=== PATIENT | female | born 1955 | race Caucasian/White ===

== ENCOUNTER 2016-12-30 08:27 | Emergency (ER) | payer BC ==
--- NOTE | 2016-12-30 10:03 | ED ---
Lower Extremity - HPI Summary HPI Summary: Pain along Rt inner thigh - no redness, heat or streaks but concerned about clot as hse had one 2 years ago. Took ibuprofen this morning which alleviated persistent pain. She is pain free at this time but wants to get checked for DVT. Has lupus - takes ASAa to prevent clots. Wwas cleaning bathtub yesterday - could have strained a muscle too. - History of Current Complaint Chief Complaint: EDExtremityLower Stated Complaint: RIGHT LEG INJURY Time Seen by Provider: 12/30/16 09:36 Hx Obtained From: Patient Pain Intensity: 0 - Allergies/Home Medications Allergies/Adverse Reactions: Allergies Allergy/AdvReac Type Severity Reaction Status Date / Time Bee Venom Allergy Intermediate Swelling Verified 10/02/15 17:39 Of Face,Lips,& Throat Sulfa Antibiotics Allergy Intermediate Rash And Verified 10/02/15 17:39 Itching Lamotrigine [From Lamictal] Allergy Swelling Verified 10/02/15 17:39 PMH/Surg Hx/FS Hx/Imm Hx Previously Healthy: Yes Endocrine/Hematology History: Reports: Hx Systemic Lupus Erythematosus, Hx Anemia, Other Endocrine/Hematological Disorders - Lupus Denies: Hx Anticoagulant Therapy, Hx Blood Disorders Cardiovascular History: Reports: Hx Hypertension - on lisinopril, amlodipine Denies: Hx Coronary Artery Disease, Hx Pacemaker/ICD, Hx Peripheral Vascular Disease Respiratory History: Denies: Hx Pulmonary Embolism Musculoskeletal History: Reports: Hx Arthritis, Hx Osteoporosis - OSTEOPENIA Denies: Hx Rheumatoid Arthritis - LUPUS Sensory History: Reports: Hx Contacts or Glasses Denies: Hx Hearing Aid Opthamlomology History: Reports: Hx Contacts or Glasses Neurological History: Reports: Hx Seizures Psychiatric History: Denies: Hx Panic Disorder - Cancer History Cancer Type, Location and Year: Lupus Hx Chemotherapy: No Hx Radiation Therapy: No - Surgical History Surgery Procedure, Year, and Place: OVARY REMOVED, C-SECT,TONSILS, Infectious Disease History: No Infectious Disease History: Reports: Hx Shingles Denies: Traveled Outside the [place] in Last 30 Days - Family History Known Family History: Positive: Cardiac Disease - father, Hypertension Negative: Diabetes - Social History Occupation: Employed Full-time - psychologist Lives: With Family Alcohol Use: Occasionally Hx Substance Use: No Substance Use Type: Reports: None Hx Tobacco Use: No Smoking Status (MU): Never Smoked Tobacco Review of Systems Constitutional: Negative Negative: Chest Pain Negative: Shortness Of Breath Musculoskeletal: Other - see HPI Skin: Other - mild skin irrtitatoin in area - suspectable to staph infections - doesn't feel she has one now Neurological: Negative Negative: Weakness, Paresthesia, Numbness Psychological: Normal All Other Systems Reviewed And Are Negative: Yes Physical Exam Vital Signs On Initial Exam: Initial Vitals Temp Pulse Resp BP Pulse Ox 98.0 F 75 20 142/72 100 12/30/16 08:35 12/30/16 08:35 12/30/16 08:35 12/30/16 08:35 12/30/16 08:35 - [place]kinson Coma Scale Coma Scale Total: 15 Diagnostics - Vital Signs Vital Signs Temp Pulse Resp BP Pulse Ox 12/30/16 08:35 98.0 F 75 20 142/72 100 - Laboratory Lab Statement: Any lab studies that have been ordered have been reviewed, and results considered in the medical decision making process. Lower Extremity Course/Dx - Diagnoses Provider Diagnoses: Groin strain Discharge - Discharge Plan Condition: Stable Disposition: HOME Patient Education Materials: Muscle Strain (ED) Referrals: Gay Saravia MD [Primary Care Provider] - Additional Instructions: Rest, ice, gentle stretches Apply topical analgesics as needed for pain Follow-up with PCP *If worse pain or you develop redness, swelling, streaking, fever, chills, chest pain or shortness of breath, return to ED
--- NOTE | 2016-12-30 11:32 | RAD ---
HISTORY: Right groin tenderness to palpation, history of superficial venous thrombosis COMPARISONS: October 09, 2015 TECHNIQUE: Multiple transverse and longitudinal ultrasound images were obtained of the right lower extremity from the level of the common femoral vein inferiorly through to the infrapopliteal veins using grayscale, color Doppler, and spectral Doppler imaging with and without compression and with augmentation. Comparison images were obtained of the contralateral common femoral vein. FINDINGS: VEINS: The venous system of the right lower extremity is compressible throughout its course, with normal flow on color Doppler imaging and normal response to augmentation on spectral Doppler imaging. The right saphenous vein thrombosis noted on the previous examination is no longer evident. SOFT TISSUES: Unremarkable. OTHER FINDINGS: None. IMPRESSION: NO RIGHT LOWER EXTREMITY DEEP VEIN THROMBOSIS
[2016-12-30 12:59] VITALS: BP 136/72
== END 2016-12-30 12:58 | disposition home or self-care (01) ==
LOC: ED 08:27
DX: S39.011A Strain of muscle, fascia and tendon of abdomen, initial encounter (principal); X50.9XXA Other and unspecified overexertion or strenuous movements or postures, initial encounter; Y93.9 Activity, unspecified; Y92.9 Unspecified place or not applicable
CPT/HCPCS: 99282

== ENCOUNTER 2017-02-05 08:16 | Emergency (ER) | payer BC ==
[2017-02-05 08:26] VITALS: BP 143/76
--- NOTE | 2017-02-05 09:17 | UC ---
Abdominal Pain Female HPI - HPI Summary HPI Summary: 62 yo female presents with mild left sided abd discomfort and no BMs x 4-5 days mild AM nausea normal colonoscopy 2-3 yrs ago oopherectomy no f/c 0n chronic steroids (Pred 5 mg /day) recently found to be anemic/had EGD which was normal/started on Fe/last CBC was normal - History of Current Complaint Chief Complaint: UCGI Stated Complaint: CONSTIPATION Time Seen by Provider: 02/05/17 09:12 Hx Obtained From: Patient Onset/Duration: Sudden Onset, Lasting Days Timing: Constant Severity Initially: Mild Severity Currently: Mild Pain Intensity: 2 Pain Scale Used: 0-10 Numeric Location: Other - left UQ Radiates: No Character: Aching Aggravating Factor(s): Nothing Alleviating Factor(s): Nothing Associated Signs and Symptoms: Positive: Constipation, Nausea - chronic AM nausea Allergies/Adverse Reactions: Allergies Allergy/AdvReac Type Severity Reaction Status Date / Time Bee Venom Allergy Intermediate Swelling Verified 02/05/17 08:27 Of Face,Lips,& Throat Sulfa Antibiotics Allergy Intermediate Rash And Verified 02/05/17 08:27 Itching Lamotrigine [From Lamictal] Allergy Swelling Verified 02/05/17 08:27 PMH/Surg Hx/FS Hx/Imm Hx Previously Healthy: No - LUPUS Cardiovascular History: Hypertension Other History Of: Negative For: Anticoagulant Therapy - Surgical History Surgical History: Yes Surgery Procedure, Year, and Place: OVARY REMOVED, C-SECT,TONSILS, - Family History Known Family History: Positive: Cardiac Disease - father, Hypertension Negative: Diabetes - Social History Alcohol Use: Occasionally Substance Use Type: None Smoking Status (MU): Never Smoked Tobacco Review of Systems Constitutional: Negative Skin: Negative Eyes: Negative ENT: Negative Respiratory: Negative Cardiovascular: Negative Gastrointestinal: Other - constipation Genitourinary: Negative Motor: Negative Neurovascular: Negative Musculoskeletal: Negative Neurological: Negative Psychological: Negative All Other Systems Reviewed And Are Negative: Yes Physical Exam Triage Information Reviewed: Yes Appearance: Well-Appearing, No Pain Distress, Well-Nourished Vital Signs: Initial Vital Signs Temp 97.4 F 02/05/17 08:21 Pulse 74 02/05/17 08:21 Resp 18 02/05/17 08:21 BP 143/76 02/05/17 08:21 Pulse Ox 100 11/16/17 08:21 Vital Signs Reviewed: Yes Eyes: Positive: Conjunctiva Clear ENT: Positive: Hearing grossly normal. Negative: Nasal congestion, Nasal drainage, Dental tenderness, Sinus tenderness Neck: Positive: Supple, Nontender, No Lymphadenopathy Respiratory: Positive: Lungs clear, Normal breath sounds, No respiratory distress, No accessory muscle use Cardiovascular: Positive: RRR, No Murmur Abdomen Description: Positive: Soft, Other: - stool guaiac (+), no fland blood, soft stool in vault. Negative: Nontender - minimal LLQ tenderness to deep palpation, Distended, Guarding, Hepatomegaly, McBurney's Point Tenderness, Peritoneal Signs, Pulsatile Mass, Splenomegaly Musculoskeletal: Positive: ROM Intact, No Edema Neurological: Positive: Alert Psychological Exam: Normal Skin Exam: Normal Diagnostics - Laboratory Diagnostic Studies Completed/Ordered: stool guaiac (+) Abd Pain Female Course/Dx - Differential Dx/Diagnosis Provider Diagnoses: constipation. stool guaiac (+) Discharge - Discharge Plan Condition: Stable Disposition: HOME Patient Education Materials: Constipation (ED), Gastrointestinal Bleeding (ED) Referrals: Gay Saravia MD [Primary Care Provider] - 2 Weeks Additional Instructions: you are planning on having out blood work done today If there is not a CBC ordered have the lab call Call Dr. Saravia in AM to check CBC results If it has dropped significantly since your last one I suggest you don't travel Recheck BIGG for abd pain/ leslee blood seen in stools/lightheadedness For constipation Milk of Mag 30cc (2 tablespoons) every 6 hours for three doses Fleets enema if this is not successful
== END 2017-02-05 09:50 | disposition home or self-care (01) ==
LOC: UCEAST 08:16
DX: K59.00 Constipation, unspecified (principal); R19.5 Other fecal abnormalities
CPT/HCPCS: 82272; 99212; G0463

== ENCOUNTER 2021-05-04 00:36 | Inpatient (IN) ==
[2021-05-04 02:26] LABS: ABS Basophils 0.1 10^3/ul (0-0.2); ABS Eosinophils 0.1 10^3/ul (0-0.6); ABS Lymphocytes 2.5 10^3/ul (1.0-4.8); ABS Monocytes 0.8 10^3/ul (0-0.8); ABS Neutrophils 4.6 10^3/ul (1.5-7.7); Eosinophil % 1.4 %; Hematocrit 36 % (35-47); Hemoglobin 11.7 g/dL (12.0-16.0); Lymphocyte % 30.9 %; Mean Corpuscular HGB Conc 33 g/dL (31-36); Mean Corpuscular Hemoglobin 29 pg (27-31); Mean Corpuscular Volume 87 fL (80-97); Mean Platelet Volume 7.1 fL (7.4-10.4); Platelet Count 296 10^3/uL (150-450); Red Blood Count 4.09 10^6 /uL (3.70-4.87); Red Cell Distribution Width 15 % (10-15); Urine Appearance Clear; Urine Bilirubin Negative (Negative); Urine Blood 2+ (Negative); Urine Color Colorless; Urine Glucose Negative (Negative); Urine Ketones Negative (Negative); Urine Nitrite Negative (Negative); Urine Protein Negative (Negative); Urine Specific Gravity 1.004 (1.002-1.030); Urine Urobilinogen Negative (Negative); White Blood Count 8.1 10^3/uL (3.5-10.8)
[2021-05-04 02:39] LABS: Urine Bacteria Absent (Absent); Urine Red Blood Cell 1+(3-5/hpf) (Absent); Urine White Blood Cell Absent (Absent)
[2021-05-04 02:41] LABS: ALT 26 U/L (7-52); AST 25 U/L (13-39); Albumin 3.9 g/dL (3.2-5.2); Albumin/Globulin Ratio 1.3 (1-3); Alkaline Phosphatase 103 U/L (35-149); Anion Gap 4 mmol/L (2-11); Blood Urea Nitrogen 19 mg/dL (6-24); CO2 Carbon Dioxide 30 mmol/L (22-32); Calcium 9.5 mg/dL (8.6-10.3); Chloride 105 mmol/L (101-111); Glucose 92 mg/dL (70-100); Potassium 3.7 mmol/L (3.5-5.0); Sodium 139 mmol/L (135-145); Total Protein 6.9 g/dL (6.4-8.9); eGFR CKD-EPI 55.8 (>60)
[2021-05-04 02:46] LABS: Troponin I 0.05 ng/mL (<0.03)
[2021-05-04] MEDS ORDERED: Calcium Gluconate 2 GM in NS 0.9% 100 ml BAG 100 ML IV ONE (03:00)
[2021-05-04] MEDS ORDERED: NS 0.9% 100 ml BAG 100 ML ONE (03:09)
[2021-05-04 03:12] LABS: Alcohol, S < 13 mg/dL (<13)
[2021-05-04 03:13] LABS: INR 2.81 (0.86-1.15)
[2021-05-04 03:27] LABS: TSH Ultra Thyroid Stim Horm 8.59 mcIU/mL (0.34-5.60)
[2021-05-04 04:32] LABS: Magnesium 1.8 mg/dL (1.9-2.7)
[2021-05-04 04:51] LABS: Free T4 0.99 ng/dL (0.61-1.12)
[2021-05-04] MEDS ORDERED: Warfarin per PHARMACY **NOTE FOLLOW UP SCH (05:00)
[2021-05-04 05:32] LABS: Troponin I 0.08 ng/mL (<0.03)
[2021-05-04 05:40] LABS: Urine Creatinine Concentration 20.25 mg/dL
[2021-05-04] MEDS ORDERED: Potassium Chlor 20 meq TAB.ER PO ONE (06:19)
[2021-05-04] MEDS ORDERED: Magnesium Sulfate 2 gm BAG 2 GM/50 ML BAG IVPB ONE (06:19)
[2021-05-04] MEDS: Calcium/Vitamin D TAB 250/125 TAB PO SCH (07:40)
[2021-05-04 09:01] LABS: Phosphorus 2.7 mg/dL (2.5-5.0)
[2021-05-04 09:47] LABS: Troponin I 0.08 ng/mL (<0.03)
[2021-05-04] MEDS ORDERED: Phytonadione IV (Adult) 5 MG in NS 0.9% 50 ML 50 ML IV ONE (10:00)
[2021-05-05 05:31] LABS: ABS Eosinophils 0.1 10^3/ul (0-0.6); ABS Monocytes 0.5 10^3/ul (0-0.8); ABS Neutrophils 2.7 10^3/ul (1.5-7.7); Eosinophil % 2.4 %; Hematocrit 36 % (35-47); Hemoglobin 11.9 g/dL (12.0-16.0); Lymphocyte % 37.6 %; Mean Corpuscular HGB Conc 33 g/dL (31-36); Mean Corpuscular Hemoglobin 29 pg (27-31); Mean Corpuscular Volume 87 fL (80-97); Mean Platelet Volume 6.7 fL (7.4-10.4); Platelet Count 254 10^3/uL (150-450); Red Blood Count 4.12 10^6 /uL (3.70-4.87); Red Cell Distribution Width 15 % (10-15); White Blood Count 5.4 10^3/uL (3.5-10.8)
[2021-05-05 05:38] LABS: INR 1.29 (0.86-1.15)
[2021-05-05 05:45] LABS: Potassium 4.1 mmol/L (3.5-5.0); eGFR CKD-EPI 66.5 (>60)
[2021-05-05] MEDS ORDERED: Enoxaparin 60 MG/0.6 ML SYR SUBCUT SCH (07:00)
[2021-05-05] MEDS ORDERED: Enoxaparin 40 MG/0.4 ML SYR SUBCUT ONE (09:00)
[2021-05-05] MEDS: Calcium/Vitamin D TAB 250/125 TAB PO SCH (09:33)
[2021-05-05] MEDS ORDERED: Calcium Carb (TUMS) 500 mg CHEW TAB PO ONE (23:06)
[2021-05-06 03:12] LABS: Troponin I 0.03 ng/mL (<0.03)
[2021-05-06] MEDS: NS 0.9% 1000 ml BAG 1,000 ML IV SCH ×2 (05:07→12:13)
[2021-05-06 05:13] LABS: ABS Basophils 0.1 10^3/ul (0-0.2); ABS Eosinophils 0.1 10^3/ul (0-0.6); ABS Lymphocytes 2.1 10^3/ul (1.0-4.8); ABS Monocytes 0.6 10^3/ul (0-0.8); ABS Neutrophils 3.1 10^3/ul (1.5-7.7); Eosinophil % 2.2 %; Hematocrit 33 % (35-47); Hemoglobin 11.1 g/dL (12.0-16.0); Lymphocyte % 35.6 %; Mean Corpuscular HGB Conc 33 g/dL (31-36); Mean Corpuscular Hemoglobin 29 pg (27-31); Mean Corpuscular Volume 88 fL (80-97); Mean Platelet Volume 7.1 fL (7.4-10.4); Platelet Count 238 10^3/uL (150-450); Red Blood Count 3.81 10^6 /uL (3.70-4.87); Red Cell Distribution Width 15 % (10-15)
[2021-05-06 05:20] LABS: INR 1.2 (0.86-1.15)
[2021-05-06 05:30] LABS: Anion Gap 5 mmol/L (2-11); Blood Urea Nitrogen 23 mg/dL (6-24); CO2 Carbon Dioxide 25 mmol/L (22-32); Chloride 108 mmol/L (101-111); Glucose 83 mg/dL (70-100); Sodium 138 mmol/L (135-145); eGFR CKD-EPI 63.3 (>60)
[2021-05-06 05:34] LABS: Troponin I 0.03 ng/mL (<0.03)
[2021-05-06 10:04] LABS: C Reactive Protein 3.26 mg/L (<8.01)
[2021-05-06] MEDS ORDERED: ceFAZolin 2 GM in NS PREMIX 2 GM/100 ML BAG IVPB ONE (10:15)
[2021-05-06] MEDS ORDERED: ceFAZolin VIAL 1 GM in NS 0.9% 50 ML 50 ML IVPB ONE (10:15)
[2021-05-06] MEDS ORDERED: ceFAZolin VIAL 1 GM in NS *SYRINGE* 10 ML IVPB ONE (11:00)
[2021-05-06] MEDS: [UNRECOGNIZED DRUG - REMARK] IVPB SCH ×2 (14:22→16:37)
[2021-05-06] MEDS ORDERED: Lidocaine 1% VIAL 10 MG/ML VIAL ONE (14:28)
[2021-05-06] MEDS ORDERED: fentaNYL 100 mcg/2 ml 50 MCG/ML VIAL ONE (14:28)
[2021-05-06] MEDS ORDERED: Midazolam 5 mg/5 ml VIAL 1 mg/ml 5 ml VIAL (5 mg) ONE (14:28)
[2021-05-06] MEDS: Calcium/Vitamin D TAB 250/125 TAB PO SCH (16:34)
[2021-05-06] MEDS ORDERED: ceFAZolin VIAL 1 GM in NS 0.9% 50 ML 50 ML IVPB SCH (22:00)
[2021-05-06] MEDS: ceFAZolin 1 GM X 3 DOSES POST-OP Q8H (AddVan) IVPB SCH (23:00)
[2021-05-07 04:59] LABS: INR 1.15 (0.86-1.15)
[2021-05-07 05:11] LABS: Calcium 8.5 mg/dL (8.6-10.3); Potassium 4.3 mmol/L (3.5-5.0); eGFR CKD-EPI 63.3 (>60)
[2021-05-07] MEDS: ceFAZolin 1 GM X 3 DOSES POST-OP Q8H (AddVan) IVPB SCH ×2 (06:11→14:08)
[2021-05-07 06:22] LABS: ABS Eosinophils 0.1 10^3/ul (0-0.6); ABS Lymphocytes 1.4 10^3/ul (1.0-4.8); ABS Monocytes 0.7 10^3/ul (0-0.8); ABS Neutrophils 4.5 10^3/ul (1.5-7.7); Eosinophil % 0.9 %; Hematocrit 36 % (35-47); Hemoglobin 11.9 g/dL (12.0-16.0); Lymphocyte % 20.8 %; Mean Corpuscular HGB Conc 33 g/dL (31-36); Mean Corpuscular Hemoglobin 29 pg (27-31); Mean Corpuscular Volume 88 fL (80-97); Mean Platelet Volume 6.7 fL (7.4-10.4); Platelet Count 152 10^3/uL (150-450); Red Blood Count 4.11 10^6 /uL (3.70-4.87); Red Cell Distribution Width 15 % (10-15); White Blood Count 6.7 10^3/uL (3.5-10.8)
[2021-05-07] MEDS: Calcium/Vitamin D TAB 250/125 TAB PO SCH (08:39)
[2021-05-07 15:21] VITALS: BP 121/64
== END 2021-05-07 16:50 | disposition home or self-care (01) | DRG 243 ==
LOC: ED 00:36 → SUATTDRO 04:17 → EDHOLD 04:17 → ICU 06:22 → MEDTELE 05-06 16:22
PROVIDERS: ADMIT Internal Medicine; ATTEND Hospitalist

== ENCOUNTER 2021-12-17 17:41 | Observation (INO) ==
[2021-12-17] MEDS ORDERED: NS 0.9% 1000 ml BAG 1,000 ML IV ONE ×2 (18:54→19:12)
[2021-12-17] MEDS ORDERED: Acetaminophen IV 1 GM/100ML 1,000 MG/100 ML BAG IV ONE (18:58)
[2021-12-17 19:02] LABS: ABS Basophils 0.1 10^3/ul (0-0.2); ABS Lymphocytes 2.1 10^3/ul (1.0-4.8); ABS Monocytes 0.6 10^3/ul (0-0.8); ABS Neutrophils 18.2 10^3/ul (1.5-7.7); Eosinophil % 0.1 %; Hematocrit 39 % (35-47); Hemoglobin 12.4 g/dL (12.0-16.0); Lymphocyte % 10.2 %; Mean Corpuscular HGB Conc 32 g/dL (31-36); Mean Corpuscular Hemoglobin 28 pg (27-31); Mean Corpuscular Volume 89 fL (80-97); Mean Platelet Volume 7.1 fL (7.4-10.4); Platelet Count 304 10^3/uL (150-450); Red Blood Count 4.41 10^6 /uL (3.70-4.87); Red Cell Distribution Width 16 % (10-15)
[2021-12-17] MEDS ORDERED: Piperacillin/Tazobac ADVAN 3.375 GM in NS 0.9% 100 ml BAG 100 ML IV ONE (19:19)
[2021-12-17] MEDS ORDERED: Hydrocortisone INJ 100 MG/2ML 2 ML VIAL IV ONE (19:20)
[2021-12-17 19:52] LABS: Albumin/Globulin Ratio 1.4 (1-3); Calcium 10.1 mg/dL (8.6-10.3); Globulin 2.9 g/dL (2-4); Magnesium 2.7 mg/dL (1.9-2.7); Potassium 4.1 mmol/L (3.5-5.0); Total Bilirubin 0.7 mg/dL (0.2-1.0); Total Protein 6.9 g/dL (6.4-8.9); eGFR CKD-EPI 40.4 (>60)
[2021-12-17] MEDS ORDERED: Iodixanol (CONTRAST) 320 MG/ML 100 ML SDV IV ONE (20:01)
[2021-12-17 21:22] LABS: High Sensitivity Troponin 1 Hr 36 pg/mL (<15)
[2021-12-17] MEDS ORDERED: Warfarin per PHARMACY **NOTE FOLLOW UP SCH (23:45)
[2021-12-17] MEDS ORDERED: NS 0.9% 1000 ml BAG 1,000 ML IV SCH (23:45)
[2021-12-17] MEDS ORDERED: Zosyn per Pharmacy NOTE FOLLOW UP SCH (23:45)
[2021-12-18 01:10] LABS: C Reactive Protein 2.38 mg/L (<8.01)
[2021-12-18] MEDS ORDERED: ZOSYN 3.375 GM Q8H per EXTENDED INFUSION IV ONE (04:00)
[2021-12-18 04:08] LABS: Urine Appearance Clear; Urine Bilirubin Negative (Negative); Urine Blood 1+ (Negative); Urine Color Amber; Urine Glucose Negative (Negative); Urine Ketones Trace (Negative); Urine Nitrite Negative (Negative); Urine Protein Negative (Negative); Urine Specific Gravity 1.033 (1.002-1.030); Urine Urobilinogen Negative (Negative)
[2021-12-18 04:48] LABS: Urine Bacteria 1+ (Absent); Urine Red Blood Cell 2+(6-10/hpf) (Absent); Urine White Blood Cell Trace(0-5/hpf) (Absent)
[2021-12-18 05:11] LABS: ABS Basophils 0.1 10^3/ul (0-0.2); ABS Lymphocytes 0.7 10^3/ul (1.0-4.8); ABS Monocytes 0.6 10^3/ul (0-0.8); ABS Neutrophils 15.3 10^3/ul (1.5-7.7); Hematocrit 31 % (35-47); Lymphocyte % 4.3 %; Mean Corpuscular HGB Conc 32 g/dL (31-36); Mean Corpuscular Hemoglobin 28 pg (27-31); Mean Corpuscular Volume 87 fL (80-97); Mean Platelet Volume 7.3 fL (7.4-10.4); Platelet Count 242 10^3/uL (150-450); Red Blood Count 3.61 10^6 /uL (3.70-4.87); Red Cell Distribution Width 16 % (10-15); White Blood Count 16.6 10^3/uL (3.5-10.8)
[2021-12-18 05:32] LABS: INR 4.06 (0.89-1.11)
[2021-12-18 06:01] LABS: Blood Urea Nitrogen 20 mg/dL (6-24); CO2 Carbon Dioxide 23 mmol/L (22-32); Chloride 108 mmol/L (101-111); Glucose 119 mg/dL (70-100); Sodium 135 mmol/L (135-145); eGFR CKD-EPI 51.3 (>60)
[2021-12-18 06:07] LABS: Anion Gap 4 mmol/L (2-11)
[2021-12-18 07:42] LABS: INR 3.82 (0.89-1.11)
[2021-12-18] MEDS: ZOSYN 3.375 GM Q8H per EXTENDED INFUSION IV SCH ×2 (13:31→21:08)
[2021-12-18] MEDS ORDERED: Warfarin - No Order Today **NOTE FOLLOW UP ONE (17:00)
[2021-12-18] MEDS ORDERED: Warfarin DAILY REMINDER **NOTE FOLLOW UP SCH (17:00)
[2021-12-19] MEDS: ZOSYN 3.375 GM Q8H per EXTENDED INFUSION IV SCH ×2 (05:20→12:49)
[2021-12-19 05:47] LABS: ABS Eosinophils 0.1 10^3/ul (0-0.6); ABS Lymphocytes 2.1 10^3/ul (1.0-4.8); ABS Monocytes 0.6 10^3/ul (0-0.8); Eosinophil % 1.4 %; Hematocrit 28 % (35-47); Hemoglobin 9.1 g/dL (12.0-16.0); Lymphocyte % 26.4 %; Mean Corpuscular HGB Conc 33 g/dL (31-36); Mean Corpuscular Hemoglobin 29 pg (27-31); Mean Corpuscular Volume 87 fL (80-97); Mean Platelet Volume 6.7 fL (7.4-10.4); Platelet Count 175 10^3/uL (150-450); Red Cell Distribution Width 15 % (10-15); White Blood Count 7.9 10^3/uL (3.5-10.8)
[2021-12-19 05:53] LABS: INR 3.11 (0.89-1.11)
[2021-12-19 06:35] LABS: Calcium 7.9 mg/dL (8.6-10.3); Potassium 3.4 mmol/L (3.5-5.0); eGFR CKD-EPI 65.7 (>60)
[2021-12-19] MEDS ORDERED: Potassium Chlor 20 meq TAB.ER PO ONE (09:53)
[2021-12-19 13:30] LABS: Rapid COVID-19 Molecular Undetected (Undetected)
[2021-12-19 15:08] VITALS: BP 114/54
[2021-12-19] MEDS ORDERED: Warfarin - No Order Today **NOTE FOLLOW UP ONE (17:00)
== END 2021-12-19 18:05 | disposition home or self-care (01) ==
LOC: EDHOLD 17:41 → ED 17:41 → SUATTDRO 23:36 → EDHOLD 12-18 07:01 → MED 12-18 07:04
PROVIDERS: ADMIT Internal Medicine; ATTEND Internal Medicine